=== PATIENT | female | born 2000 | race Caucasian/White ===

== ENCOUNTER 2025-06-27 12:36 | Emergency (ER) | payer MEDICAID ==
[~2025-06-27] VITALS: Ht 162.6 cm; Wt 105.0 kg
[2025-06-27 12:41] VITALS: O2SAT 97
[2025-06-27 13:47] LABS: BASOPHILS % 0.7 % (0.0-2.0); EOSINOPHILS % 2.9 % (0.0-5.0); HEMATOCRIT. 39.5 % (36.0-48.0); HEMOGLOBIN. 13.3 g/dL (12.0-16.0); LYMPHOCYTES % 22.5 % (20.0-50.0); MEAN PLATELET VOLUME 9.7 fl (7.4-10.4); MONOCYTES % 7.4 % (2.0-8.0); NEUTROPHILS % 66.5 % (40.0-76.0); PLATELET 298 x1000/uL (130-400); RED BLOOD CELL COUNT 4.52 mill/uL (4.2-5.4); RED CELL DISTRIBUTION WIDTH 14.2 % (11.6-14.6)
[2025-06-27 14:02] LABS: CREATININE 0.6 mg/dL (0.6-1.0); UREA NITROGEN BLOOD 8 mg/dL (9-23)
[2025-06-27] MEDS ORDERED: NAPR-681 MT (14:23)
[2025-06-27 14:28] VITALS: BP 122/81; PULSE 88; RESP 15; TEMP 36.9; O2SAT 99
== END 2025-06-27 14:30 | disposition home or self-care (01) ==
LOC: ER 12:36
DX: M94.0 Chondrocostal junction syndrome [Tietze] (principal); Z79.1 Long term (current) use of non-steroidal anti-inflammatories (NSAID); Z88.0 Allergy status to penicillin
CPT/HCPCS: 36415; 71045; 80048; 85025; 93005; 99285